=== PATIENT | female | born 1940 | race Caucasian/White ===

== ENCOUNTER 2017-11-28 09:51 | Outpatient (CLI) | payer MEDICARE, BC, SELFPAY ==
--- NOTE | 2017-11-28 09:47 | DI.RAD_ITS ---
SYMPTOM/DIAGNOSIS: RIGHT HIP PAIN RIGHT HIP: 11/28 Three views were obtained. Note is made of a total left hip joint replacement in position. Left paramidline pelvic calcification has appearance consistent with uterine fibroid. Mild DJD of the S-I joints and moderate DJD of lower lumbar spine noted. There is marked narrowing of the cartilaginous joint space of the right hip. Prominent hypertrophic spurring is noted involving the acetabulum and femoral head. Mild subchondral sclerosis also noted involving the bones of the hip. CONCLUSION: Moderate to severe DJD right hip.
== END 2017-11-28 10:11 ==
PROVIDERS: PCP Family Medicine; Visit Provider Physician Assistant
DX: M25.551 Pain in right hip (principal); M16.11 Unilateral primary osteoarthritis, right hip; Z96.642 Presence of left artificial hip joint; D25.9 Leiomyoma of uterus, unspecified
CPT/HCPCS: 73502

== ENCOUNTER 2017-11-28 10:15 | Outpatient (CLI) | payer MEDICARE, BC, SELFPAY | END 2017-11-28 10:35 | PROVIDERS: PCP Family Medicine; Visit Provider Student in an Organized Health Care Education/Training Program | DX: M16.11 Unilateral primary osteoarthritis, right hip (principal) | CPT/HCPCS: 99214 ==

== ENCOUNTER 2018-01-05 00:13 | Outpatient (CLI) | payer MEDICARE, BC, SELFPAY ==
--- NOTE | 2018-01-05 07:07 | DI.RAD_ITS ---
SYMPTOMS/DIAGNOSIS: PRIMARY OSTEOARTHRITIS, RIGHT HIP, M16.11 RIGHT HIP INJECTION: Fluoroscopy Time: 2 sec A frontal image of the right hip demonstrates an intraarticular injection of contrast material carried out by Dr. Kearney. Please see the procedure report for further information.
[2018-01-05] MEDS: methylPREDNISolone ACETATE 80 MG/ML VIAL IM (14:58)
[2018-01-05] MEDS: Bupivacaine 0.5% Pres-Free 10 ML VIAL 30 ML IJ (14:59)
[2018-01-05] MEDS: Omnipaque 300 MG/ML 10 ML BTL IJ (15:00)
--- NOTE | 2018-01-05 15:32 | W.PROCNOTE ---
Date of service: 01/05/18 Time of Service: 15:32 Procedure Note Procedure: Right Hip Injection with Fluoroscopic Guidance Surgeon/Proceduralist/Physician: Shawn Kearney Procedure Diagnosis: Right Hip Osteoarthritis Procedure Indications: Jodee has had persistent pain of the RIGHT hip and groin. Noninvasive measures have been tried. To serve as both diagnostic and therapeutic, an injection under fluoroscopy was recommended. I had discussed the risks of the procedure and the patient elected to proceed. Procedure Description: Jodee was greeted in the flouroscopy room. The correct side was identified and the consent was reviewed with the patient and signed. The patient was then placed in the supine position on the fluoroscopy table. The RIGHT hip was then prepped with Chloraprep. The anterolateral injection starting point was identiifed by bony landmarks and fluoroscopy. The skin and soft tissue in the tract of the injection was anesthetized with 1% Lidocaine. A spinal needle was then inserted deep into the hip joint at the level of the lateral femoral neck under fluoroscopic guidance. A small amount of Omnipaque solution was injected to confirm intraarticular placement. Once confirmed, the hip was injected with 6cc of 0.5% Bupivicaine and 80mg of Depo-Medrol. A bandaid was placed on the injection site. The patient tolerated the procedure well and noted improvement in pre-injection pain.
== END 2018-01-05 00:33 ==
PROVIDERS: PCP Family Medicine; Visit Provider Student in an Organized Health Care Education/Training Program
DX: M25.551 Pain in right hip (principal); M16.11 Unilateral primary osteoarthritis, right hip
CPT/HCPCS: 20610; 77002; J1040

== ENCOUNTER 2018-05-25 09:56 | Outpatient (CLI) | payer MEDICARE, BC, SELFPAY ==
[2018-05-25 13:08] LABS: ALT 27 U/L (12-78); AST 27 U/L (15-37); Albumin 3.7 g/dL (3.4-5.0); Alkaline Phosphatase 58 U/L (46-116); Anion Gap 7.9 mmol/L (3-11); BUN 22 mg/dL (7-18); Bilirubin, Total 0.4 mg/dL (0.2-1.0); CO2 29.1 mmol/L (21.0-32.0); CREATININE 0.94 mg/dL (0.55-1.02); Calcium 9.1 mg/dL (8.5-10.1); Chloride 102 mmol/L (98-107); Cholesterol 224 mg/dL (50-200); Estimated GFR 58.05 (mL/min/1.73m2); Glucose 79 mg/dL (70-100); HDL Cholesterol 59 mg/dL (40-60); LDL CHOLESTEROL 141 mg/dL (<100); Potassium 3.9 mmol/L (3.5-5.1); Sodium 139 mmol/L (136-145); TSH (W/Ref FT4) 0.92 uIU/mL (0.358-3.74); Total Protein 6.8 g/dL (6.4-8.2); Triglyceride 152 mg/dL (30-150)
== END 2018-05-25 10:16 ==
PROVIDERS: PCP Family Medicine; Visit Provider Family Medicine
DX: E03.9 Hypothyroidism, unspecified (principal); E78.00 Pure hypercholesterolemia, unspecified
CPT/HCPCS: 36415; 80053; 80061; 83721; 84443

== ENCOUNTER 2018-05-30 01:32 | Outpatient (CLI) | payer MEDICARE, BC, SELFPAY ==
--- NOTE | 2018-05-30 09:53 | DI.RAD_ITS ---
SYMPTOM/DIAGNOSIS: HICCUPS, DYSPHAGIA, R13.10 BARIUM SWALLOW AND UPPER GI SERIES: Fluoroscopy Time: 1 min 32 seconds A PA and lateral chest is normal. A soft tissue examination of the neck is unremarkable save for mild degenerative changes involving the lower cervical spine. The patient swallowed barium without difficulty. A small axial hiatus hernia is noted beneath a non obstructing lower esophageal ring. There is no evidence of a stricture or mass. The stomach is normal. The duodenal bulb and loop are normal. The visualized proximal jejunal segments also appear unremarkable. SUMMARY: Unremarkable examination save for a small axial hiatus hernia beneath a non obstructing lower esophageal ring.
[2018-05-30] MEDS: Barium Sulfate 60% W/V 355 ML BTL PO ×2 (10:00→10:01)
== END 2018-05-30 01:52 ==
PROVIDERS: PCP Family Medicine; Visit Provider Family Medicine
DX: R13.10 Dysphagia, unspecified (principal); R06.6 Hiccough; K44.9 Diaphragmatic hernia without obstruction or gangrene
CPT/HCPCS: 74220; 74247

== ENCOUNTER 2018-06-15 00:32 | Outpatient (CLI) | payer MEDICARE, BC, SELFPAY ==
--- NOTE | 2018-06-15 11:36 | DI.RAD_ITS ---
SYMPTOMS/DIAGNOSIS: PAIN IN LT FOOT, M79.672 LEFT FOOT: Three views were obtained. There is marked narrowing of the cartilaginous joint space of the first MTP joint with very prominent associated subchondral sclerotic and cystic changes and underlying bony deformity particularly of the head of the first metatarsal. CONCLUSION: Severe DJD first MTP joint. Mild DJD IP joints of the foot.
== END 2018-06-15 00:52 ==
PROVIDERS: PCP Family Medicine; Visit Provider Podiatrist Foot & Ankle Surgery
DX: M79.672 Pain in left foot (principal); M19.072 Primary osteoarthritis, left ankle and foot
CPT/HCPCS: 73630

== ENCOUNTER 2019-07-12 01:50 | Outpatient (CLI) | payer MEDICARE, BC, SELFPAY ==
[2019-07-12 09:20] LABS: TSH (W/Ref FT4) 0.49 uIU/mL (0.36-3.74)
[2019-07-13 10:59] LABS: Hepatitis C Ab w Rflx HCV PCR Negative (Negative)
== END 2019-07-12 02:10 ==
PROVIDERS: PCP Family Medicine; Visit Provider Family Medicine
DX: E03.9 Hypothyroidism, unspecified (principal); Z11.59 Encounter for screening for other viral diseases
CPT/HCPCS: 36415; 86803; 84443

== ENCOUNTER 2020-06-05 02:13 | Outpatient (CLI) | payer MEDICARE, BC, SELFPAY ==
[2020-06-05 16:41] LABS: TSH (W/Ref FT4) 0.05 uIU/mL (0.36-3.74)
[2020-06-05 17:01] LABS: FREE T4 1.28 ng/dL (0.76-1.46)
== END 2020-06-05 02:14 | disposition home or self-care (01) ==
LOC: LBO 02:13
PROVIDERS: PCP Family Medicine; Visit Provider Family Medicine
DX: E03.9 Hypothyroidism, unspecified (principal)
CPT/HCPCS: 36415; 84439; 84443

== ENCOUNTER 2020-07-30 10:43 | Outpatient (CLI) | payer MEDICARE, BC, SELFPAY ==
--- NOTE | 2020-07-30 12:15 | DI.US_ITS ---
Exam(s) US SOFT TISSUE EXTREMITY EXAM: US SOFT TISSUE EXTREMITY CLINICAL HISTORY: r/o mass vs lipoma, mass lt upper extremity, R22.32. TECHNIQUE: Ultrasound was performed using standard protocol. COMPARISON: No exams were available for comparison FINDINGS: Sonographic assessment utilizing grayscale and color Doppler imaging was performed and targeted to th e area of clinical concern. There is a large heterogeneous in area involving the muscles of the posterior upper arm. There appea rs to be disruption of the muscle fibers centrally suspicious for a muscle tear. No internal blood f low is seen. A mass cannot be entirely excluded. An MRI of the left upper extremity is recommended for further evaluation. IMPRESSION: DATA REPOSITORY:
== END 2020-07-30 11:03 ==
PROVIDERS: PCP Family Medicine; Visit Provider Nurse Practitioner Family
DX: R22.32 Localized swelling, mass and lump, left upper limb (principal); M62.89 Other specified disorders of muscle
CPT/HCPCS: 76881

== ENCOUNTER 2020-08-15 01:57 | Outpatient (CLI) | payer MEDICARE, BC, SELFPAY ==
--- NOTE | 2020-08-15 07:45 | DI.MRI_ITS ---
Exam(s) MR UPPER EXTREMITY LT WO/W EXAM: MR UPPER EXTREMITY LT WO/W CLINICAL HISTORY: left arm mass,F/U ABNL US,R22.32 TECHNIQUE: Multiplanar multisequence MRI was performed. Both noninfused infused sequences were perf ormed. Submitted images are field of view upper 2/3 of the upper arm. COMPARISON: No exams were available for comparison FINDINGS: MARROW:There is no evidence of fracture, bone contusion, nor ominous osseous lesions. No evidence of Hill-Sachs deformity. Degenerative subarticular cysts are noted in the humeral. MUSCLES: There is signal abnormality in the triceps consistent with partial tearing of the long head triceps muscle.. There is significant thinning of the supraspinatus tendon. Essentially only a few strands remaining. Tiny amount of fluid in the subacromial bursa. Insertional tendinitis signal in the infraspinatus but no full-thickness tear. Teres minor intact. Anterior cuff subscapularis appears intact. GLENOHUMERAL JOINT: Advanced degenerative changes with joint advanced joint space narrowing and carti ghazala loss and subarticular edema in the and in the humeral head articular surface and in the osseous glenoid glenoid as well as multiple tiny degenerative subarticular cysts. There also degenerative king barticular cysts on the glenoid side as well as at the greater tuberosity level. There is a moderate size osteophyte on the inferior articular surface of the humeral head there is a small joint effusio n. There is fluid in the subscapularis bursa which contains multiple loose bodies. Biceps tendon: Normal position within the intertubercular groove. Not torn. Glenoid labrum: Multilevel tearing evident OTHER: None. IMPRESSION: 1. There is intramuscular signal in the long head triceps tendon consistent with partial tearing. 2. There are advanced osteoarthritic degenerative changes in the glenohumeral joint as described abov e. In addition, there is diffuse tearing of the glenoid labrum without evidence of paralabral cyst. Third is fluid extension the subscapularis bursa which contains multiple loose bodies. 3. There is high-grade thinning of the supraspinatus tendon with only a few remaining fibers intact. There is tendinitis signal in the infraspinatus but no high-grade tear of the infraspinatus. The an terior cuff-subscapularis is intact. DATA REPOSITORY:
[2020-08-15 14:16] LABS: CREATININE 0.8 mg/dL (0.55-1.02); TSH (W/Ref FT4) 0.22 uIU/mL (0.36-3.74)
[2020-08-15 14:33] LABS: FREE T4 1.09 ng/dL (0.76-1.46)
[2020-08-15] MEDS: Normal Saline Flush 10 ML SYR IVP (14:56)
[2020-08-15] MEDS: Gadoterate meglumine 20 ML VIAL 12 ML IVP (14:57)
--- NOTE | 2020-08-15 18:11 | DI.VRAD_ITS ---
PROCEDURE INFORMATION: Exam: MR Left Upper Extremity Other Than Joint Without and With Contrast, Humerus. Exam date and time: 08/15/2020 2:46 PM Age: 79 years old Clinical indication: Mass or lump; Arm, upper; Left TECHNIQUE: Imaging protocol: MR of the Left upper extremity other than joint without and with intravenous contrast. Exam focused on the Humerus. Contrast material: DOTAREM; COMPARISON: US SOFT TISSUE EXTREMITY 07/30/2020 1:41 PM FINDINGS: Bones/joints: Advanced degenerative changes of the glenohumeral joint. Subchondral cystic change and edema present in the glenoid articular surface. Osteophyte formation from the medial humeral head. No marrow infiltration of the humerus. Subchondral cystic degenerative changes of the humeral. Bursae: Fluid collection in the subscapularis bursa containing loose bodies. Tendons: Diffuse atrophy of the supraspinatus tendon. Nearly full-thickness tear. Fluid present in the biceps tendon sheath. Tendinopathy changes of the infraspinatus. Muscles: There is edema and intramuscular tear of the long head of the triceps muscle. Soft tissues: There is no soft tissue mass. IMPRESSION: 1. Edema and intramuscular tear of the long head of the triceps muscle. 2. Advanced degenerative changes of the glenohumeral joint. 3. Diffuse atrophy with nearly full-thickness tear of the entire supraspinatus tendon. Only a few slips of tendon fibers are intact. Tendinopathy changes of the infraspinatus tendon. 4. Fluid collection in the subscapularis bursa containing loose bodies. 5. Advanced degenerative tear of the glenoid labrum. Dictated and Authenticated by: Jd Whittaker MD. Ordering:OPAL Austin MD
== END 2020-08-15 02:17 ==
PROVIDERS: PCP Family Medicine; Visit Provider Family Medicine
DX: S46.312A Strain of muscle, fascia and tendon of triceps, left arm, initial encounter (principal); S46.012A Strain of muscle(s) and tendon(s) of the rotator cuff of left shoulder, initial encounter; M24.012 Loose body in left shoulder; M77.9 Enthesopathy, unspecified; M24.212 Disorder of ligament, left shoulder; X58.XXXA Exposure to other specified factors, initial encounter
CPT/HCPCS: 73220; 82565; 84439; 84443

== ENCOUNTER → 2020-09-09 08:09 | Outpatient (BNVA) | payer MEDICARE, BC, SELFPAY | PROVIDERS: PCP Family Medicine; Referring Provider Family Medicine; Visit Provider Student in an Organized Health Care Education/Training Program | DX: S46.312D Strain of muscle, fascia and tendon of triceps, left arm, subsequent encounter (principal); X58.XXXD Exposure to other specified factors, subsequent encounter; M75.112 Incomplete rotator cuff tear or rupture of left shoulder, not specified as traumatic; R22.32 Localized swelling, mass and lump, left upper limb | CPT/HCPCS: 99203; 99213 ==

== ENCOUNTER 2021-06-15 14:56 | Outpatient (REF) | payer MEDICARE, SELFPAY ==
[2021-06-15 18:34] LABS: ALT 26 U/L (14-59); AST 21 U/L (15-37); Albumin 3.8 g/dL (3.4-5.0); Alkaline Phosphatase 72 U/L (46-116); Anion Gap 6.6 mmol/L (3-11); BUN 23 mg/dL (7-18); Bilirubin, Total 0.3 mg/dL (0.2-1.0); CO2 29.4 mmol/L (21.0-32.0); CREATININE 0.9 mg/dL (0.55-1.02); Chloride 103 mmol/L (98-107); Glucose 117 mg/dL (74-106); Potassium 4.2 mmol/L (3.5-5.1); Sodium 139 mmol/L (136-145); TSH (W/Ref FT4) 0.21 uIU/mL (0.36-3.74); Total Protein 6.8 g/dL (6.4-8.2)
[2021-06-15 18:52] LABS: FREE T4 0.99 ng/dL (0.76-1.46)
== END 2021-06-15 14:57 | disposition home or self-care (01) ==
LOC: LBN 14:56
PROVIDERS: PCP Family Medicine; Visit Provider Family Medicine
DX: E03.9 Hypothyroidism, unspecified (principal)
CPT/HCPCS: 80053; 84439; 84443

== ENCOUNTER 2021-07-20 14:54 | Outpatient (CLI) | payer MEDICARE, SELFPAY ==
--- NOTE | 2021-07-20 14:45 | DI.RAD_ITS ---
Exam(s) XR HIP RT COMPLETE AP PELVIS EXAM: XR HIP RT COMPLETE AP PELVIS INDICATION: OA R hip. COMPARISON: CR XR hip RT complete AP pelvis from 11/28/2017 TECHNIQUE: 2D digital imaging was performed. Two views. FINDINGS: Stable appearance of left total hip prosthesis. Severe degenerative changes of the right hip, with s evere joint space narrowing, prominent periarticular spurring and subchondral cyst formation on both sides of the joint.. Findings have progressed when compared with the previous exam. Calcified fibro id is again noted. IMPRESSION: Severe degenerative changes of the right hip. DATA REPOSITORY: RADIATION DOSE DELIVERED:
== END 2021-07-20 14:55 | disposition home or self-care (01) ==
LOC: DIORS 14:54
PROVIDERS: PCP Family Medicine; Referring Provider Family Medicine; Visit Provider Physician Assistant
DX: M16.11 Unilateral primary osteoarthritis, right hip (principal)
CPT/HCPCS: 99214; 73502

== ENCOUNTER → 2021-08-24 12:56 | Outpatient (BNVA) | payer MEDICARE, SELFPAY | PROVIDERS: PCP Family Medicine; Referring Provider Family Medicine; Visit Provider Physician Assistant | DX: Z01.818 Encounter for other preprocedural examination (principal); M16.11 Unilateral primary osteoarthritis, right hip ==

== ENCOUNTER 2021-09-01 02:55 | Outpatient (CLI) | payer MEDICARE, SELFPAY | END 2021-09-01 02:56 | disposition home or self-care (01) | LOC: LBO 02:56 | PROVIDERS: PCP Family Medicine; Visit Provider Student in an Organized Health Care Education/Training Program ==

== ENCOUNTER 2021-09-01 03:32 | Outpatient (CLI) | payer MEDICARE, SELFPAY ==
[2021-09-01 11:10] LABS: HCT 38.6 % (36.0-46.0); HGB 12.8 g/dL (11.2-15.7); MCHC 33.2 % (32.0-36.0); MCV 94 fL (80-95); MPV 9.7 fL (8.0-11.0); Platelet Count 247 10^3/uL (130-400); RBC 4.13 10^6/uL (3.93-5.22); RDW 12.6 % (11.7-14.6); RDW-SD 43.5 fL; WBC 6.11 10^3/uL (4.4-10.8)
[2021-09-01 11:26] LABS: Source Nasal/Nares
[2021-09-01 11:35] LABS: Anion Gap 6.7 mmol/L (3-11); BUN 24 mg/dL (7-18); CO2 29.3 mmol/L (21.0-32.0); CREATININE 0.7 mg/dL (0.55-1.02); Calcium 8.7 mg/dL (8.5-10.1); Chloride 101 mmol/L (98-107); Glucose 90 mg/dL (74-106); Potassium 4.6 mmol/L (3.5-5.1); Sodium 137 mmol/L (136-145)
[2021-09-01 16:45] LABS: COVID-19 PCR Negative (Negative)
== END 2021-09-01 03:33 | disposition home or self-care (01) ==
LOC: LBO 03:32
PROVIDERS: PCP Family Medicine; Visit Provider Student in an Organized Health Care Education/Training Program
DX: M16.11 Unilateral primary osteoarthritis, right hip (principal); Z01.818 Encounter for other preprocedural examination; Z20.822 Contact with and (suspected) exposure to COVID-19
CPT/HCPCS: 36415; 80048; 85027; 87635

== ENCOUNTER 2021-09-02 05:56 | Day surgery (SDC) | payer MEDICARE, SELFPAY ==
[2021-09-02] VITALS (8 sets, daily range): BP systolic 103–139; BP diastolic 53–90; PULSE 55–73; RESP 10–18; TEMP 36–36.5; O2SAT 97–100; BMI 21.7
[2021-09-02] MEDS: Celecoxib 200 MG CAP 400 MG PO (06:39)
[2021-09-02] MEDS: Acetaminophen 500 MG TAB 1000 MG PO (06:39)
[2021-09-02] MEDS: Lactated Ringers 1,000 ML 80 ML IV (06:50)
--- NOTE | 2021-09-02 07:06 | W.ANESPRE ---
General Info Date of Service Date Performed: 09/02/21 Height: 5 ft 4 in Weight: 57.4 kg Body Mass Index (BMI): 21.7 Surgical Procedure: Operation Date: 09/02/21 07:50 Proposed Procedure Side Surgeon p Hip Total Hip Anterior Right Shawn Kearney MD Meds Allergies and Home Medications Allergies Allergy/AdvReac Type Severity Reaction Status Date / Time nabumetone [From Relafen] Allergy Intermediate itchy rash Verified 09/02/21 06:21 Home Medication Medication Instructions Recorded red yeast rice 600 mg tablet 600 mg PO HS 01/12/13 tretinoin 0.05 % topical cream 1 patrick topical DAILY 01/12/13 cholecalciferol (vitamin D3) 50 2,000 unit PO HS 01/21/14 mcg (2,000 unit) capsule (Vitamin D3) glucosamine sulfate 1,500 mg oral 1,500 mg PO DAILY 09/09/20 powder packet levothyroxine 88 mcg tablet 88 mcg PO DAILY #90 tab-caps 06/15/21 acetaminophen 500 mg capsule 1,000 mg PO Q6H PRN 09/02/21 Current Visit Medications: Current Medications Generic Name Dose Route Start Last Admin Trade Name Freq PRN Reason Stop Dose Admin Acetaminophen 1,000 mg 09/02/21 06:00 09/02/21 06:39 Acetaminophen 500 Mg Tab PO 09/02/21 16:00 1,000 mg PREOP CAILIN Administration Acetaminophen 1,000 mg 09/02/21 08:30 Acetaminophen 500 Mg Tab PO TID CAILIN Aspirin 81 mg 09/02/21 08:30 Aspirin E.C. 81 Mg Tabec PO BID CAILIN Celecoxib 400 mg 09/02/21 06:00 09/02/21 06:39 Celecoxib 200 Mg Cap PO 09/02/21 16:00 400 mg PREOP CAILIN Administration Celecoxib 200 mg 09/03/21 08:30 Celecoxib 200 Mg Cap PO BID CAILIN Docusate Sodium 100 mg 09/02/21 06:37 Docusate Sodium 100 Mg Cap PO BID PRN PRN Constipation Hydromorphone HCl 0.5 mg 09/02/21 06:37 Hydromorphone 2 Mg/Ml Vial IVP Q2H PRN PRN Tranexamic Acid 1,000 mg/ 60 mls @ 360 mls/hr 09/02/21 06:00 Sodium Chloride IV 09/02/21 16:00 PREOP CAILIN Ringer's Solution 1,000 mls @ 80 mls/hr 09/02/21 06:00 09/02/21 06:50 IV 10/01/21 23:59 80 mls/hr INFUSION CAILIN Administration Cefazolin Sodium/Dextrose 2 gm in 50 mls @ 100 mls/hr 09/02/21 06:00 Ancef Duplex IVPB 10/01/21 23:59 PREOP CAILIN Cefazolin Sodium/Dextrose 1 gm in 50 mls @ 100 mls/hr 09/02/21 15:00 Ancef Duplex IVPB 09/03/21 07:29 Q8H CAILIN IV Miscellaneous Supplies 1 each 09/02/21 06:00 Iv Access IV 10/01/21 23:59 DIRECTED CAILIN Ondansetron HCl 4 mg 09/02/21 06:37 Ondansetron 4 Mg/2 Ml Vial IVP Q6H PRN PRN Nausea Oxycodone HCl 5 - 10 mg 09/02/21 06:37 Oxycodone 5 Mg Tab PO Q3H PRN PRN Pain Pantoprazole Sodium 40 mg 09/02/21 07:30 Pantoprazole 40 Mg Tabcr PO DAILY@0730 CAILIN Sodium Chloride 0 ml 09/02/21 06:00 Normal Saline Flush 10 Ml Syr IV 10/01/21 23:59 PRN PRN Sodium Chloride 0 ml 09/02/21 06:00 Normal Saline 10 Ml Vial IJ 10/01/21 23:59 DIRECTED PRN Sterile Water 0 ml 09/02/21 06:00 Water,Injection,Sterile 10 Ml Vial IJ 10/01/21 23:59 DIRECTED PRN PFSH Active Problems Active Problems: Problem Status Onset Code Primary osteoarthritis of right hip M16.11 Degeneration of L4-L5 intervertebral disc 02/17/15 M51.36 Dysphagia Encounter for HCV screening test for low risk patient Z11.59 Hypothyroid E03.9 Mass of left upper extremity R22.32 Triceps tendon rupture S46.319A Incomplete tear of left rotator cuff M75.112 Sebaceous cyst L72.3 Medical History Medical History Abnormal cervical Papanicolaou smear 1990-cryo; 1993-dysplasia; ASCUS x 2 1997-; ASCUS in 2001-colposcopy; neg HPV (high risk) Abnormal cervical Papanicolaou smear Acquired hallux valgus S/P SURGERY Actinic keratosis Herpes zoster 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 felt surgery during c section. Surgical History Surgical History (Updated 09/02/21 @ 06:26 by Nury Rodriguez) Biopsy of breast 2002 2008 right-neg Cervical Procedure (~1990) CERVICAL LES CRYOTHERAPY section x 2 H/O reduction mammoplasty 02/28/07 History of bunionectomy of right great toe History of hip replacement left History of total left hip arthroplasty 06/29/15 Hx of radical excision of skin lesion left cheek followed by plastic surgery S/P reconstruction procedure 06/06/12 reconstruction of left cheek melanoma defect. Tonsillectomy and adenoidectomy Tobacco Smoking/Tobacco Use Status: Never Passive smoking exposure: Yes Second hand exposure: Yes ( childhood) Alcohol Alcohol Intake: current Alcohol intake frequency: a few times a month Alcohol type: wine Substance Use Substance use: Never Substance use type: does not use Details: alcohol: unknown Vital Signs and Lab Results Vital Signs Most Recent Vital Signs in EMR: Most Recent Vital Signs Temp Pulse Resp BP Pulse Ox 36.5 C 73 18 139/90 99 09/02/21 06:27 09/02/21 06:27 09/02/21 06:27 09/02/21 06:27 09/02/21 06:27 Lab Results Blood Type / Crossmatch: No Data to Display Complete Blood Count: White Blood Count 6.11 10^3/uL (4.4-10.8) 09/01/21 10:40 Red Blood Count 4.13 10^6/uL (3.93-5.22) 09/01/21 10:40 Hemoglobin 12.8 g/dL (11.2-15.7) 09/01/21 10:40 Hematocrit 38.6 % (36.0-46.0) 09/01/21 10:40 Platelet Count 247 10^3/uL (130-400) 09/01/21 10:40 Complete Metabolic Panel: Sodium Level 137 mmol/L (136-145) 09/01/21 10:40 Potassium Level 4.6 mmol/L (3.5-5.1) 09/01/21 10:40 Chloride Level 101 mmol/L (98-107) 09/01/21 10:40 Carbon Dioxide Level 29.3 mmol/L (21.0-32.0) 09/01/21 10:40 Blood Urea Nitrogen 24 mg/dL (7-18) H 09/01/21 10:40 Creatinine 0.7 mg/dL (0.55-1.02) 09/01/21 10:40 Estimated GFR/1.73 m2 >= 60.00 (mL/min/1.73m2) 09/01/21 10:40 Calcium Level 8.7 mg/dL (8.5-10.1) 09/01/21 10:40 Glucose Level 90 mg/dL (74-106) 09/01/21 10:40 Liver Function Panel: No Data to Display Coagulation Panel: No Data to Display Cardiac Panel: No Data to Display Arterial Blood Gas: No Data to Display Venous Blood Gas: No Data to Display Pancreas Panel: No Data to Display Thyroid Panel: No Data to Display Infectious Disease: Coronavirus (COVID-19)(PCR) Negative (Negative) 09/01/21 10:52 Coronavirus 2019 Source Nasal/Nares 09/01/21 10:52 Blood Cultures: No Data to Display Toxicology Panel: No Data to Display Anesthesia Assessment and Plan Anesthesia History Personal History: No History of Anesthesia Complications Family History: No Family History of Anesthesia Complications Exercise Tolerance Exercise Tolerance: Metabolic Equivalents>4 Pertinent Negatives Pertinent Negatives: No Symptoms of GERD, No Major Cardiovascular Symptoms or Complaints and No Major Pulmonary Symptoms or Complaints Cardiac & Pulmonary Exam Cardiac Exam: Normal S1/S2 Heart Sounds Pulmonary Exam: Clear Bilateral Breath Sounds Implantable Cardiac Device Does patient have a Pacemaker or an ICD?: No Airway Exam Known Difficult Airway: No Mallampati Class: 2 Mouth Opening: Normal (> 3cm) Thyromental Distance: Greater than 3 cm Neck Range of Motion: Full ROM Neck Circumference: Normal Teeth Condition: Normal Dentition Airway Comments: TMJ: Wears guard nightly ASA Classification ASA Score: ASA 2 Emergency Case?: No NPO Status NPO Status: NPO Clears >2 hours, Solids >8 hours Anesthesia Plan Resuscitation Status: Full Code Anesthesia Technique: Spinal Anesthesia Airway Planned: Natural Airway Monitors Used: Standard Monitors
--- NOTE | 2021-09-02 07:15 | PDOC.DSDIS_ITS ---
Discharge Plan Disposition Patient Disposition: HOME Condition: Good Discharge Details Reason For Visit: Right MILY Attending Provider: Shawn Kearney Primary Care Provider: Geovanna Navarrete Home Meds and New Rx's Prescriptions: New acetaminophen 500 mg capsule 1,000 mg PO Q8H PRN PRNQty: 90 0RF aspirin 81 mg tablet,delayed release (DR/EC) 81 mg PO BID Qty: 60 0RF celecoxib [Celebrex] 200 mg capsule 200 mg PO BID Qty: 60 0RF pantoprazole [Protonix] 40 mg tablet,delayed release (DR/EC) 40 mg PO DAILY Qty: 30 0RF oxycodone 5 mg tablet 5 mg PO Q4H PRNQty: 18 0RF Continued levothyroxine 88 mcg tablet 88 mcg PO DAILY Qty: 90 12RF glucosamine sulfate 1,500 mg powder in packet 1,500 mg PO DAILY tretinoin 20 GM cream 1 patrick Topical DAILY red yeast rice 600 MG tablet 600 mg PO HS cholecalciferol (vitamin D3) [Vitamin D3] 2,000 UNIT capsule 2,000 unit PO HS acetaminophen 500 mg Capsule 1,000 mg PO Q6H PRN Discharge Instructions Additional Instructions: Total Hip Discharge Instructions Activity: The most important activity is to walk. You should try to take short walks a few times a day. You have no restrictions on movement or positioning, but do not try to force what you do. You will find some stiffness and weakness with hip flexion (lifting your knee). Do not try to strengthen this too early, continue to practice walking and stairs and this will come. - Outpatient physical therapy can be helpful to help return you to a normal gait and improve your flexibility and strength. This can start around 2 weeks. For some patients, it?s not necessary. Usually this is determined at the time of discharge or at the first post-operative visit. - You should wear the JOANN hose on both legs for 2 weeks. Dressing: Keep the surgical dressing in place for at least one week. After the first week it may be removed and replace with light gauze and tape or nothing. It may get wet after 3 days but avoid soaking the dressing. If it gets wet, just lightly pat dry. It is important to always keep some gauze between skin folds, especially when you are sitting. Spend some time with the wound exposed when you are lying flat as the incision does wrinkle onto itself. Medications: - You should take Tylenol and an anti-inflammatory Celebrex as your primary pain control medications. If the Celebrex is too expensive or not covered, please call the office for another alternative (Advil/Ibuprofen or Naproxen/Aleve). - You have been prescribed a stronger pain medication Oxycodone for breakthrough pain, take as needed as prescribed. - You have also been prescribed a stomach acid reduction agent Pantoprozole to help reduce stomach acid and reflux. - You will be taking Aspirin 81mg twice a day for DVT prevention unless instructed otherwise. - If you have constipation you should take Colace or Miralax (both [id number]). It takes most people 3-4 days to have a bowel movement. Follow-up: 2 weeks If you have any acute concerns or questions, please do not hesitate to contact the office at [phone]. You may contact Dr. Kearney with any questions after hours through the hospital at [phone] or on his cell phone at [phone]. Referrals: Shawn Kearney MD [ [facility] ST[facility]FF PHYSICIAN] - Equipment/Supplies: Walker Activity:: Activity as Tolerated Remove Dressings/Wound Care:: Do Not Remove Shower/Bathe:: 72 hours Diet:: As Tolerated Discharge Orders Discharge Orders: Discharge Order (Routine); Ordered 09/02/21 Ordered By: Юлия Soto DS: Diagnosis Discharge Diagnosis (1) Primary osteoarthritis of right hip: Status: Chronic
[2021-09-02] MEDS: ceFAZolin 2 GM/50 ML BAG IVPB (07:37)
--- NOTE | 2021-09-02 08:34 | DI.RAD_ITS ---
Exam(s) XR HIP RT IN OR EXAM: XR HIP RT IN OR CLINICAL HISTORY: OSTEOARTHRITIS RIGHT HIP. TECHNIQUE: 2D and realtime digital imaging was performed. COMPARISON: No exams were available for comparison FINDINGS: Fluoroscopy was provided in the OR for Dr. Kearney. A hard copy image shows placement of a right hi p prosthesis. The alignment appears satisfactory. Fluoro time 17.6 seconds Please see procedure note for details. RADIATION DOSE DELIVERED: Michelr=1.47 mGy
--- NOTE | 2021-09-02 09:27 | ROE_ITS ---
Operative Note Operative Note DATE OF PROCEDURE: 09/02/21 PRE-OP DIAGNOSIS: Right Hip Osteoarthritis POST-OP DIAGNOSIS: same PROCEDURE: Right Anterior Total Hip Arthroplasty with Intraoperative Navigation SURGEON: Shawn Kearney PROCESSING LEAD: Юлия Soto ANESTHESIA TYPE: Spinal Refer to Anesthesia Record ESTIMATED BLOOD LOSS: 200 PATHOLOGY: none sent TOURNIQUET TIME: 0 COMPLICATIONS: None Patient was transported to: PACU Patient's condition: stable Implants: 1. Depuy Littlefield Acetabular Component, 50mm 2. Depuy Acetabular Liner, [id number] 3. Depuy Corail Standard Collared Femoral Stem, Size 12 4. Depuy Altrx Ceramic Femoral Head, Size 32+5mm Indications: I have seen Jodee in clinic for symptoms of hip arthritis, confirmed with radiographic findings. Jodee has exhausted nonoperative methods and was having significant limitations in daily function and desired better function and less pain. I discussed the technical details of a hip replacement. I explained the risks of the procedure to include, but not limited to, bleeding, infection, pain, stiffness, fracture, damage to nerves and vessels, damage to muscles and tendons, loosening, instability, leg length inequality, need for repeat procedure, blood clot and cardiopulmonary demise. Despite these risks, Jodee elected to proceed. Findings: There was significant signs of arthritis throughout the hip. Procedure Description: Jodee was greeted in the preoperative holding area where the correct side was identified and marked. The consent was reviewed with the patient and signed. The history and physical was updated. All questions were answered. Jodee was taken back to the operating room. A spinal anesthestic was then administered. The feet were wrapped with cast padding and Coban and then placed into the boot liners and then into the boots. Care was taken to protect the skin and make sure the heels were fully down and the boots were stable. The patient was then positioned onto the HANA table. Both legs were held in a neutral position. SCDs were applied. The patient was then slid down onto a peroneal post. Prophylactic antibiotics in the form of Cefazolin were administered. 1g of Tranxemic Acid was given intravenously within 30 minutes of incision. The right leg was then prepped with Chloraprep and draped in a standard fashion. A second prep with Chloraprep was performed prior to placement of a shower-curtain type drape with Iodine impregnated skin protection. A timeout to confirm correct identity, side and site, procedure, allergies, anesthesia, and medical concerns was performed. An obliquely oriented incision was made starting lateral to the ASIS and running distal over the Tensor Fascia Celena (TFL) muscle belly toward the fibular head, approximately 10cm. The skin and soft tissue was dissected sharply, through Lisa?s fascia, and to the fascia of the TFL. With the fascia and superior border of the IT band identified, the fascia was incised with a new knife just above any perforators from the IT band. The TFL muscle belly was bluntly dissected away from the fascia and moved laterally. The fat between TFL and rectus was identified to ensure the dissection was not within the TFL. Blunt dissection created space between abductors and the capsule and retractor was placed over the lateral femoral neck. The fibers of the rectus femoris tendon were identified and these were freed from the anterior capsule. A second cobra retractor was placed around the medial femoral neck. The TFL was further retracted laterally to show the deep fascia. Careful dissection through this layer identified three main crossing vessels of the lateral femoral circumflex. These were cauterized in multiple locations and then cut without any noticeable bleeding. The TFL was further released bluntly from the deep fascia to expose anterior hip capsule and fat The Vernon orthopaedic retractor was then placed beneath the TFL and against sartorius and medial soft tissues to protect and retract the soft tissues. A T-capsulotomy was then performed starting at the superior lateral acetabulum and moving distally to the intertrochanteric ridge. These capsular flaps were tagged with a No. 1 Ethibond and elevated from within. The capsular flaps were released to the shoulder of the lateral neck and to the lesser trochanter to give excellent visualization of the proximal femur. A neck osteotomy was performed using an oscillating saw based on preoperative templates. This cut started in the shoulder and of the lateral neck and exited medially. The saw was at all times directed medially to avoid injury to the greater trochanter. Gross traction was applied to the leg and the osteotomy opened. The femoral head was removed with a corkscrew, making sure to protect the TFL on its exit. Traction was released after head removal. This was measured on the back table to determine the starting reamer size. Portions of the rectus obscuring visualization were minimally elevated off the superior acetabulum. An anterior retractor was placed over the anterior wall between capsule and labrum and attached to the Gripper retraction system. The femur was rotated to 90 degrees and medial capsule was fully released until the lesser trochanter was palpable and visible; the femur was returned to 30 degrees. A posterior retractor was placed similarly between capsule and labrum. This provided excellent visualization. The contents of the cotyloid fossa were removed with electrocautery and the labrum was removed with a knife. There was a notable floor osteophyte. There was significant chondromalacia of the superior acetabulum. Acetabular reaming began with a 45mm reamer. This first reaming was directed anterior to posterior and medial to get down to the true floor. This was inspected and reamed until the true floor was reached. The anterior retractor was then released and entry and exit was provided by traction on the capsular flaps. I then reamed sequentially up to a 50mm reamer where good fit was obtained. The larger reamers were oriented based on anatomical reference of the anterior and lateral sidhu to ensure proper abduction and anteversion. Positi oning and size was confirmed with the fluoroscopy. A 50mm Depuy [place] acetabular component was selected. The acetabulum was reamed around the periphery with the selected acetabular size to prevent a rim fit. The deep tissues were irrigated. The acetabular component was then impacted in a position of about 40-45 degrees of abduction and 15-20 degrees of anteversion, using the patient?s anatomy as the ultimate landmark. Fluoroscopy was used to confirm this. There was excellent fuel house attendant of the acetabular component and the inserting handle was removed. The acetabular liner, Depuy [id number] polyethylene liner, was inserted and lined up with the tines of the acetabular component. There was no soft tissue interposition. The liner was then impacted into position and confirmed to be well-seated. A portion of the lonnie-articular cocktail was then injected around the acetabulum into the capsule and periosteum. This cocktail consisted of 123mg of Ropivacaine, 0.25mg of Epinephrine, 0.04mg of Clonidine, and 15mg of Ketorolac, diluted to 50cc. The leg was rotated to 120 degrees. Any remaining medial capsule was released until the lesser trochanter was easily palpable. A retractor was placed medially. The lateral capsule was further released into the shoulder to allow access to the greater trochanter. A Shah retractor was placed over the greater trochanter which allowed the trochanter to flip in front of the capsule for excellent exposure. The leg was brought down into maximal extension and 20 degrees of adduction while ensuring there was no impingement on the acetabulum. Any remnant capsule within the trochanter was released. Piriformis and obturator externis were identified and protected. There was excellent access to the proximal femur. The lateral neck remnant was removed with a rongeur. A blunt canal probe was used to identify the canal and trajectory for later broaching. A box osteotome initiated the broach course. A small curved rasp and a curved curette were used to work laterally. Broaching then began with a size 8 Corail broach. This was inserted manually around the trochanter and into the canal before mallet blows. The broach was seated to a few millimeters below the cut level based on the neck cut and the preoperative template. Sequential broaching was continued with the Boost Mediase pneumatic broaching device until a tight fit was obtained with good rotational control of the femur. A trial standard neck was inserted along with a +1 trial head. The leg was brought out of extension and adduction and then reduced with traction and internal rotation. The leg was stable anteriorly in a position of 30 degrees of extension and 90 degrees of external rotation. Fluoroscopy was used to ensure there was no fracture and the stem was seated well. Leg lengths were checked with an AP pelvis and pelvic reference points. Standard Media Index navigation system was used to confirm appropriate positioning and leg length and offset. This over-corrected the leg length and slightly under-corrected the offset, which could be corrected by advancing the stem 2-3 mm and going to 125 std. Once content with the desired offset and leg lengths, the leg was brought back into extension, external rotation and adduction. The periosteum and surrounding tissue was injected with remaining portion of the lonnie-articular cocktail. The proximal femur was irrigated as well as the deep tissues. The Depuy Corail standard collared stem, size 12, was then manually inserted into the proximal femur making sure to control rotation. It was then malleted into position with light blows, giving breaks to allow bone expansion and decrease risk of fracture. The selected Depuy Altrx Ceramic Head, size 32+5mm, was then placed onto the clean and dry trunnion and secured with impaction onto the tapered fit. The leg was brought back out of extension and adduction and reduced with traction and internal rotation. Stability was confirmed with no shuck at 90 degrees of external rotation and 30 degrees of extension. No impingement through range of motion arc. Final x-ray images were obtained with fluoroscopy to confirm adequate positioning and no intraoperative fracture. The deep tissues were thoroughly irrigated with Surgiphor, betadine solution. This was allowed to sit in the wound for 3 minutes before being thoroughly irrigated out with normal saline. The capsule was then reapproximated with the previously placed Ethibond sutures. The TFL fascia was finally closed with a No. 2 Stratafix, barbed suture. Deep tissues were then reapproximated with 0 Vicryl and a running 2-0 Vicryl. The skin was closed with a running 4-0 Monocryl in a subcuticular fashion. This was reinforced with skin glue. A Mepilex silver dressing was applied. At the end of the case, all counts were correct. Jodee was transferred to the hospital bed without difficulty and suffering no apparent complication. Jodee has a good prognosis. Physical therapy will start today and without restrictions, weight-bearing as tolerated. Aspirin 81mg BID will be used for DVT prophylaxis.
--- NOTE | 2021-09-02 10:02 | W.ANESPOSTOP ---
Postoperative Evaluation Date, Time and Location Date Performed: 09/02/21 Time Performed: 10:02 Patient Location: Day Surgery Unit Vital Signs Most Recent Imported Vital Signs: Most Recent Vital Signs Temp Pulse Resp BP Pulse Ox 36.0 C L 56 L 16 108/76 100 09/02/21 09:19 09/02/21 09:19 09/02/21 09:19 09/02/21 09:19 09/02/21 09:19 Pain Score Most Recent Pain Score: Most Recent Pain Score Pain Level 4 09/02/21 09:19 Assessment Mental Status: Awake (Alert & Oriented to Patient Baseline) Airway and Respiratory Function: Patent airway with normal (patient baseline) respiratory exam Cardiovascular Function: Hemodynamically Stable Hydration Status: Adequately Hydrated Nausea & Vomiting: No Nausea or Vomiting Pain: Pain is tolerable per patient Peripheral Nerve Block: Patient did not receive a nerve block
--- NOTE | 2021-09-02 11:27 | PT.INIE ---
PT Notes Visit Reasons: Right MILY Inpatient Physical Therapy Evaluation Date: 09/02/21 Referring Doctor: ZUHAIR Cook PT Orders: PT CONSULT: right hip OA s/p MILY Precautions: standard Patient Profile/Admitting Diagnosis: Patient seen in post-op recovery following right MILY performed this morning. 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 Her daughter is present at time of evaluation; she will be staying with Jodee temporarily. She is supportive throughout session. Together they report a very active lifestyle. Jodee does not utilize an assistive device at baseline, but has a 4WW from her previous hip replacement. Equipment Owned/DME: 4WW Subjective: Jodee states that she's feeling sore. She's ready to get up walking. Objective: General Observation: Resting in bed. IV in LUE. Mental Status: A&Ox3 Pain: 2-3/10 ROM: Right Upper Extremity: WFL Left Upper Extremity: WFL Right Lower Extremity: Functionally demonstrates hip flexion to 80 degrees. Full knee extension. Otherwise not assessed due to post-operative status. Left Lower Extremity: WFL Strength: Right Upper Extremity: WFL Left Upper Extremity: WFL Right Lower Extremity: able to pump ankles and wiggle toes Left Lower Extremity: WFL Sensation: intact distally Bed Mobility/Transfers: supine-sit: supervision sit-stand: supervision stand-sit: supervision, min cues for hand placement Gait: ambulates 30'x2 with 4WW. Demonstrates good safety awareness and equipment management, with need for only minimal cues. No increase in pain with ambulation. No loss of balance or path deviation. Stairs: Manages 6 stairs x 2, bilat rails, supervision only. Step-to pattern. Balance: Static Sitting: Normal Dynamic Sitting: Normal Static Standing: Good Dynamic Standing: Fair Informed Consent/Education: Patient instructed in purpose of PT consult and plan of care. Received gait and transfer training with use of 4WW. Assessment: Patient is a 81 year old female referred to physical therapy services with the diagnosis of right hip OA, s/o MILY, post op day 0. Patient presents with clinical signs and symptoms consistent with post-operative status, as demonstrated by the following impairment level findings: 1. decreased activity tolerance 2. decreased dynamic balance Impairments are contributing to the following functional limitations: 1. decreased tolerance to household distance ambulation 2. need for use of AD during ambulation Patient is assessed as Low [id number] complexity based on the following: History: Patient is an active and independent 81 year old female post op day 0 from right MILY. She is motivated and has good family support. She demonstrates good safety and mobility, and is appropriate for discharge home with family support. Examination: functional impairments as noted above Presentation: stable Decision Making: low complexity Plan of Care/Treatment Plan: D/C from PT. Instructed in anti-embolic exercises for hourly performance. DISCHARGE RECOMMENDATIONS: Home with no services Will follow up with Dr. Kearney in 2 weeks TREATMENT CODE/TIME : 11:00 - 11:20 ([id number]) Nora Kuhn, PT, DPT [facility]
== END 2021-09-02 12:05 | disposition home or self-care (01) ==
PROVIDERS: PCP Family Medicine; Visit Provider Student in an Organized Health Care Education/Training Program
PROC: (CPT 27130; principal; 2021-09-02 07:30)
DX: M16.11 Unilateral primary osteoarthritis, right hip (principal); M51.36 Other intervertebral disc degeneration, lumbar region; E03.9 Hypothyroidism, unspecified
CPT/HCPCS: 20985; 27130; C1776; 97161; 73501; J0690; J2405

== ENCOUNTER 2021-09-17 10:54 | Outpatient (CLI) | payer MEDICARE, SELFPAY ==
--- NOTE | 2021-09-17 11:15 | DI.RAD_ITS ---
Exam(s) XR HIP RT COMPLETE AP PELVIS EXAM: XR HIP RT COMPLETE AP PELVIS CLINICAL HISTORY: 1ST POST OP R MILY. TECHNIQUE: 2D digital imaging was performed. COMPARISON: Prior x-rays 07/20/2021 FINDINGS: There has been interval placement of a right hip prosthesis. Components are in satisfactory position alignment. No fractures or loosening. The previously present prosthesis in the opposite-left hip also appears stable. Also again noted is a calcific density slightly to the left of center in the pelvis which is probably within a uterine fibroid. IMPRESSION: DATA REPOSITORY: RADIATION DOSE DELIVERED:
== END 2021-09-17 10:55 | disposition home or self-care (01) ==
PROVIDERS: PCP Family Medicine; Referring Provider Family Medicine; Visit Provider Student in an Organized Health Care Education/Training Program
DX: Z96.641 Presence of right artificial hip joint (principal); Z47.1 Aftercare following joint replacement surgery
CPT/HCPCS: 73502

== ENCOUNTER → 2021-10-12 10:56 | Outpatient (BNVA) | payer MEDICARE, SELFPAY | PROVIDERS: PCP Family Medicine; Referring Provider Family Medicine; Visit Provider Physician Assistant | DX: Z47.1 Aftercare following joint replacement surgery (principal); Z96.641 Presence of right artificial hip joint ==

== ENCOUNTER 2022-07-19 02:14 | Outpatient (CLI) | payer MEDICARE, SELFPAY ==
[2022-07-19 13:55] LABS: TSH (W/Ref FT4) 0.12 uIU/mL (0.36-3.74)
[2022-07-19 14:16] LABS: FREE T4 1.11 ng/dL (0.76-1.46)
== END 2022-07-19 02:15 | disposition home or self-care (01) ==
LOC: LOS 02:14
PROVIDERS: PCP Family Medicine; Visit Provider Family Medicine
DX: E03.9 Hypothyroidism, unspecified (principal)
CPT/HCPCS: 36415; 84439; 84443

== ENCOUNTER 2022-09-13 10:26 | Outpatient (CLI) | payer MEDICARE, SELFPAY ==
--- NOTE | 2022-09-13 08:15 | DI.RAD_ITS ---
Exam(s) XR HIP RT AP LAT ONLY EXAM: XR HIP RT AP LAT ONLY INDICATION: s/p right MILY. COMPARISON: CR XR HIP RT COMPLETE AP PELVIS from 09/17/2021 TECHNIQUE: 2D digital imaging was performed. Two views. FINDINGS: There has been no change in the alignment of the right hip prosthesis. No suspicious bony lucencies are seen. DATA REPOSITORY: RADIATION DOSE DELIVERED:
== END 2022-09-13 10:27 | disposition home or self-care (01) ==
LOC: DIORS 10:27
PROVIDERS: PCP Family Medicine; Visit Provider Physician Assistant
DX: Z96.641 Presence of right artificial hip joint (principal); Z47.1 Aftercare following joint replacement surgery
CPT/HCPCS: 99213; 73502

== ENCOUNTER 2023-08-23 10:56 | Outpatient (CLI) | payer MEDICARE, SELFPAY ==
[2023-08-23 10:55] LABS: TSH (W/Ref FT4) 0.05 uIU/mL (0.36-3.74)
[2023-08-23 11:12] LABS: FREE T4 1.16 ng/dL (0.76-1.46)
== END 2023-08-23 10:57 | disposition home or self-care (01) ==
LOC: LBO 10:57
PROVIDERS: PCP Family Medicine; Visit Provider Family Medicine
DX: E03.9 Hypothyroidism, unspecified (principal)
CPT/HCPCS: 36415; 84439; 84443

== ENCOUNTER 2024-09-20 10:09 | Outpatient (CLI) | payer MEDICARE, SELFPAY ==
[2024-09-20 12:49] LABS: ALT 31 U/L (14-59); AST 27 U/L (15-37); Albumin 3.8 g/dL (3.4-5.0); Alkaline Phosphatase 68 U/L (46-116); Anion Gap 7.9 mmol/L (3-11); BUN 24 mg/dL (7-18); Bilirubin, Total 0.4 mg/dL (0.2-1.0); CO2 28.1 mmol/L (21.0-32.0); Calcium 8.8 mg/dL (8.5-10.1); Chloride 105 mmol/L (98-107); Estimated GFR 73.52 (mL/min/1.73m2); Glucose 95 mg/dL (74-106); Potassium 4.0 mmol/L (3.5-5.1); Sodium 141 mmol/L (136-145); TSH (W/Ref FT4) 0.08 uIU/mL (0.36-3.74); Total Protein 6.9 g/dL (6.4-8.2)
== END 2024-09-20 10:10 | disposition home or self-care (01) ==
PROVIDERS: PCP Family Medicine; Referring Provider Family Medicine; Visit Provider Family Medicine
DX: E03.9 Hypothyroidism, unspecified (principal); I10 Essential (primary) hypertension
CPT/HCPCS: 36415; 80053; 84439; 84443